=== PATIENT | female | born 1945 | race Caucasian/White ===

== ENCOUNTER 2023-07-27 13:42 | Emergency (ER) | payer OTHER ==
--- OUTSIDE RECORDS SUMMARY | 2023-07-27 13:45 | XMS REPORT | Continuity of Care Document ---
Author Name Unknown Address [address] [facility] [address] [place] [address] [facility] Address [address] [facility] [address] [place] [address] Care Team Providers Care Bench Mover Name Role Phone Janee Gottlieb Primary Care Physician Shwetha HENDRICKS, Sendlucio K.H. Attending Clinician + [phone] SONALI TADEO KSavanaHSavana Attending Clinician SHADE Aceves Attending Clinician Unavailable Doctor Unassigned, [place] Attending Clinician U navailable Payers Payer Name Policy Type Policy Number Effective Date Expirati on Date Source Problems Condition Name Condition Details Condition Category Status Onset Date Resolution Date Last Treatment Date Treating Clinician Comments Source No known active problems No known active problems Disease [facility] Allergies, Adverse Reactions, Alerts Allergy Name Allergy Type Status Severity Reaction(s) Onset Date Inactive Date Treating Clinician Comments Source NO KNOWN ALLERGIE S Drug Class Active [facility] Social History Social Habit Start Date Stop Date Quantity Comments Source History of tobacco use Cigarette Smoker [facility] Gender identity [facility] Sexual orientation U [facility] Exposure to SARS-CoV-2 (event) 2022-03-09 00:00:00 2022-03-19 13:28:00 Not sure [facility] History of Social function 2022-03-19 00:00:00 2022-03-19 00:00:00 [facility] Tobacco use and exposure 2021-01-03 00:00:00 2021-01-03 00:00:00 Former smokeless tobacco user [facility] Sex Ass[birth year] At 1945 00:00:00 1945 00:00:00 [facility] Smoking Status Start Date Stop Date Source Ex-smoker 2021-01-03 00:00:00 2021-01-03 00:00:00 [facility] Medications Ordered Medication Name Filled Medication Name Start Date Stop Date Current Medication? Ordering Clinician Indication Dosage Frequency Signature (SIG) Comments Components Source LISINOPRIL- HYDROCHLORO THIAZIDE 20-12.5 mg per tablet 11-05 00:00: 00 Yes [id number] 1{tbl} TAKE 1 TABLET BY MOUTH IN THE MORNING [facility] lisinopriL- hydrochloro thiazide 20-12.5 mg per tablet 2021-04 13:57: 51 03-19 00:00 :00 No [id number] 1{tbl} Take 1 tablet by mouth daily. [facility] lisinopriL- hydrochloro thiazide 20-12.5 mg per tablet 2021-04 13:57: 51 03-19 00:00 :00 No [id number] 1{tbl} Take 1 tablet by mouth daily. [facility] simvastatin 20 mg tablet 2021-04 13:49: 51 Yes [id number] 20mg Take 20 mg by mouth at bedtime. [facility] simvastatin 20 mg tablet 2021-04 13:49: 51 Yes [id number] 20mg Take 20 mg by mouth at bedtime. [facility] simvastatin 20 mg tablet 2021-04 13:49: 51 Yes [id number] 20mg Take 20 mg by mouth at bedtime. [facility] lisinopriL- hydrochloro thiazide 20-12.5 mg per tablet 2021-04 00:00: 00 Yes [id number] 1{tbl} Take 1 tablet by mouth in the morning. [facility] lisinopriL- hydrochloro thiazide 20-12.5 mg per tablet 2021-04 00:00: 00 Yes [id number] 1{tbl} Take 1 tablet by mouth in the morning. [facility] lisinopriL- hydrochloro thiazide 20-12.5 mg per tablet 2021-04 00:00: 00 11-05 00:00 :00 No [id number] 1{tbl} Take 1 tablet by mouth in the morning. [facility] montelukast 10 mg tablet 08-27 12:01: 43 Yes [id number] 10mg Take 10 mg by mouth daily. [facility] pantoprazol e 40 mg EC tablet 08-27 12:01: 43 Yes [id number] 40mg Take 40 mg by mouth daily. [facility] meclizine 12.5 mg tablet 08-27 12:01: 43 Yes [id number] 12.5mg Take 12.5 mg by mouth 3 (three) times daily as needed for Dizziness. [facility] lisinopriL- hydrochloro thiazide 20-12.5 mg per tablet 08-27 12:01: 43 Yes [id number] 1{tbl} Take 1 tablet by mouth daily. [facility] simvastatin 20 mg tablet 08-27 12:01: 43 Yes [id number] 20mg Take 20 mg by mouth at bedtime. [facility] metFORMIN 500 mg tablet 08-27 12:01: 43 Yes [id number] 500mg Take 500 mg by mouth 2 (two) times daily with meals. [facility] montelukast 10 mg tablet 08-27 12:01: 43 Yes [id number] 10mg Take 10 mg by mouth daily. [facility] pantoprazol e 40 mg EC tablet 08-27 12:01: 43 Yes [id number] 40mg Take 40 mg by mouth daily. [facility] meclizine 12.5 mg tablet 08-27 12:01: 43 Yes [id number] 12.5mg Take 12.5 mg by mouth 3 (three) times daily as needed for Dizziness. [facility] lisinopriL- hydrochloro thiazide 20-12.5 mg per tablet 08-27 12:01: 43 Yes [id number] 1{tbl} Take 1 tablet by mouth daily. [facility] simvastatin 20 mg tablet 08-27 12:01: 43 Yes [id number] 20mg Take 20 mg by mouth at bedtime. [facility] metFORMIN 500 mg tablet 08-27 12:01: 43 Yes [id number] 500mg Take 500 mg by mouth 2 (two) times daily with meals. [facility] montelukast 10 mg tablet 08-27 12:01: 43 Yes [id number] 10mg Take 10 mg by mouth daily. [facility] pantoprazol e 40 mg EC tablet 08-27 12:01: 43 Yes [id number] 40mg Take 40 mg by mouth daily. [facility] meclizine 12.5 mg tablet 08-27 12:01: 43 Yes [id number] 12.5mg Take 12.5 mg by mouth 3 (three) times daily as needed for Dizziness. [facility] metFORMIN 500 mg tablet 08-27 12:01: 43 Yes [id number] 500mg Take 500 mg by mouth 2 (two) times daily with meals. [facility] montelukast 10 mg tablet 08-27 12:01: 43 Yes [id number] 10mg Take 10 mg by mouth daily. [facility] pantoprazol e 40 mg EC tablet 08-27 12:01: 43 Yes [id number] 40mg Take 40 mg by mouth daily. [facility] meclizine 12.5 mg tablet 08-27 12:01: 43 Yes [id number] 12.5mg Take 12.5 mg by mouth 3 (three) times daily as needed for Dizziness. [facility] metFORMIN 500 mg tablet 08-27 12:01: 43 Yes [id number] 500mg Take 500 mg by mouth 2 (two) times daily with meals. [facility] montelukast 10 mg tablet 08-27 12:01: 43 Yes [id number] 10mg Take 10 mg by mouth daily. [facility] pantoprazol e 40 mg EC tablet 08-27 12:01: 43 Yes [id number] 40mg Take 40 mg by mouth daily. [facility] meclizine 12.5 mg tablet 08-27 12:01: 43 Yes [id number] 12.5mg Take 12.5 mg by mouth 3 (three) times daily as needed for Dizziness. [facility] metFORMIN 500 mg tablet 08-27 12:01: 43 Yes [id number] 500mg Take 500 mg by mouth 2 (two) times daily with meals. [facility] OZEMPIC 0.25 mg or 0.5 mg(2 mg/1.5 mL) PnIj 08-19 00:00: 00 Yes .5mg inject 0.5 mg under the skin weekly. [facility] OZEMPIC 0.25 mg or 0.5 mg(2 mg/1.5 mL) PnIj 08-19 00:00: 00 Yes .5mg inject 0.5 mg under the skin weekly. [facility] OZEMPIC 0.25 mg or 0.5 mg(2 mg/1.5 mL) PnIj 08-19 00:00: 00 Yes .5mg inject 0.5 mg under the skin weekly. [facility] OZEMPIC 0.25 mg or 0.5 mg(2 mg/1.5 mL) PnIj 08-19 00:00: 00 Yes .5mg inject 0.5 mg under the skin weekly. [facility] OZEMPIC 0.25 mg or 0.5 mg(2 mg/1.5 mL) PnIj 08-19 00:00: 00 Yes .5mg inject 0.5 mg under the skin weekly. [facility] Vital Signs Vital Name Observation Time Observation Value Comments S ourvika Diastolic blood pressure 2022-03-19 19:38:00 88 mm[Hg] [facility] Heart rate 2022-03-19 19:38:00 82 /min Jocelyne [facility] Systolic blood pressure 2022-03-19 19:38:00 182 mm[Hg] [facility] Body temperature 2022-03-19 19:35:00 36 Celine [facility] Body height 2022-03-19 19:35:00 152.4 cm [facility] Body weight 2022-03-19 19:35:00 77.429 kg [facility] BMI 2022-03-19 19:35:00 33.34 kg/m2 [facility] Oxygen saturation in Arterial blood by Pulse oximetry 2022-03-19 19:35:00 96 /min [facility] Systolic blood pressure 2021-08-27 17:01:00 157 mm[Hg] [facility] Diastolic blood pressure 2021-08-27 17:01:00 83 mm[Hg] [facility] Heart rate 2021-08-27 17:01:00 67 /min [facility] Respiratory rate 2021-08-27 16:59:00 19 /min [facility] Body height 2021-08-27 16:59:00 152.4 cm [facility] Body weight 2021-08-27 16:59:00 78.427 kg [facility] BMI 2021-08-27 16:59:00 33.77 kg/m2 [facility] Oxygen saturation in Arterial blood by Pulse oximetry 2021-08-27 16:59:00 94 /min [facility] Procedures Procedure Date / Time Performed Performing Clinicia n Source ASSIGNMENT OF BENEFITS 2022-03-19 19:30:29 Docto r Unassigned, [place] [facility] Encounters Start Date/Time End Date/Time Encounter Type Admission Type Attending Clinicians Care Facility Care Department Encounter ID Source 2022-11-01 00:00:00 2022-11-01 00:00:00 Refill Sonali Tadeo [facility] [id number] [id number] [facility] 2022-07-18 13:00:00 2022-07-18 13:00:00 Outpatient R SONALI TADEO [facility] [id number] [facility] 2022-04-29 14:20:00 2022-04-29 14:20:00 Outpatient R SHADE NICE [facility] [id number] [facility] 2022-03-19 13:00:00 2022-03-19 14:01:41 Outpatient R SONALI TADEO [facility] [id number] [facility] 2022-03-19 13:00:00 2022-03-19 14:01:41 Office Visit Sonali Tadeo [facility] 1..840.114 [id number] [id number] [facility] 2022-03-19 00:00:00 2022-03-19 00:00:00 Orders Only Doctor Unassigned, [place] [facility] 1..840.114 350.1.13.10 [id number] [id number] [facility] 2022-02-28 10:30:00 2022-02-28 10:30:00 Outpatient R SONALI TADEO [facility] [id number] [facility] 2021-09-04 00:00:00 2021-09-04 00:00:00 Outpatient R SONALI TADEO [facility] [id number] [facility] 2021-08-27 11:30:00 2021-08-27 12:03:36 Outpatient R SONALI TADEO [facility] [id number] [facility] 2021-08-27 11:30:00 2021-08-27 12:03:36 Office Visit Sonali Tadeo [facility] [id number] [id number] [id number] [facility] 2021-02-26 14:31:43 2021-02-26 15:08:55 Office Visit Shwetha Deirdrelucio ErichSavanaBeckySavana [facility] [id number] [id number] [id number] [id number] [facility] 2021-02-26 14:30:00 2021-02-26 15:08:55 Outpatient R SHWETHA DEIRDRELUCIO [facility] [id number] [facility] 2021-02-26 14:30:00 2021-02-26 14:30:00 [id number] 2021-01-25 12:40:50 2021-01-25 23:59:00 Hospital Encounter Shwetha Sonali ChelleSavana [facility] [id number] [id number] [id number] [id number] [facility] 2021-01-25 13:00:00 2021-01-25 13:00:00 Outpatient R SHWETHA DEIRDRELUCIO [facility] [id number] [facility] 2021-01-03 13:09:13 2021-01-03 13:47:02 Office Visit Sonali Tadeo [facility] [id number] 350.1.13.10 [id number] [id number] [facility] 2021-01-03 13:00:00 2021-01-03 13:00:00 Outpatient R SHWETHA DEIRDRELUCIO [facility] [id number] [facility]
[2023-07-27] MEDS ORDERED: ONDANSETRON 4 MG/2 ML VIAL ONE (14:06)
[2023-07-27] MEDS ORDERED: LABETALOL 20 MG/4ML SYRINGE IV ONE (14:15)
[2023-07-27 14:30] LABS: Absolute Basophils 0.1 K/uL (0-0.5); Absolute Eosinophils 0.1 K/uL (0-0.5); Absolute Monocytes 0.8 K/uL (0.1-1.3); Absolute Neutrophil 6.3 K/uL (1.8-8.0); Basophils % 0.5 % (0-1.3); Eosinophils % 0.9 % (0-4.4); Hematocrit 48.8 % (36.0-45.0); Hemoglobin 16.3 g/dL (12.0-15.0); Lymphocytes % 29.1 % (15.3-44.8); MCH 27.3 pg (27.0-35.0); MCHC 33.5 g/dL (32.0-36.0); MCV 81.5 fL (80-100); MPV 8.3 fL (7.6-11.3); Monocytes % 7.6 % (3.3-12.3); Neutrophils % 61.9 % (41.7-73.7); Nucleated Red Blood Cells % 0.1 % (0-0); Platelets 286 thou/uL (152-406); RBC Red Blood Cell Count 5.98 M/uL (3.86-4.86); Red Cell Distribution Width 14.5 % (12.1-15.2)
[2023-07-27 14:31] LABS: PT Prothrombin Time 11.7 SECONDS (9.5-12.5); Protime INR 1.07
[2023-07-27 14:43] LABS: Albumin/Globulin Ratio 0.9 (1.1-1.8); Bilirubin Direct 0.2 mg/dL (0-0.2); Bilirubin Indirect, Calculated 0.3 mg/dL (0.2-0.8); Bilirubin Total 0.5 mg/dL (0.2-1.0); Globulin 4.3 g/dL (2.3-3.5); Magnesium 2.1 mg/dL (1.6-2.4); Protein, Total 8.3 g/dL (6.4-8.2); Troponin High Sensitivity 4.8 pg/mL (<58.9)
--- NOTE | 2023-07-27 15:02 | RAD REPORT ---
EXAM DESCRIPTION: RAD - Chest Single View - 07/27/2023 2:45 pm CLINICAL HISTORY: CHEST PAIN COMPARISON: Chest Pa And Lat (2 Views) dated 12/28/2019 FINDINGS: Lines: None. Lungs: Hazy opacities in the lung bases bilaterally. Pleural: No significant pleural effusions or pneumothorax. Cardiac: Cardiomegaly. Mediastinum: Within normal limits. Bones: No acute fractures. Other: None IMPRESSION: Hazy basilar opacities could reflect atelectasis, underpenetration, or acute airspace di sease.
--- NOTE | 2023-07-27 15:23 | RAD REPORT ---
EXAM DESCRIPTION: CT - Head Brain Wo Cont - 07/27/2023 3:11 pm CLINICAL HISTORY: CONFUSED COMPARISON: No comparisons TECHNIQUE: All CT scans are performed using dose optimization technique as appropriate and may inclu de automated exposure control or mA/KV adjustment according to patient size. FINDINGS: No intracranial hemorrhage, hydrocephalus or extra-axial fluid collection.No areas of brai n edema or evidence of midline shift. Moderate chronic small vessel ischemic changes. Cerebral atroph y. The paranasal sinuses and mastoids are clear. The calvarium is intact. IMPRESSION: No acute intracranial abnormality.
[2023-07-27] MEDS ORDERED: POTASSIUM CL SA 10 MEQ TAB PO ONE (15:53)
[2023-07-27] MEDS ORDERED: Levofloxacin500mg IV 500 MG/100 ML BAG IV ONE (15:53)
--- NOTE | 2023-07-27 16:44 | ER ---
Nurse's Notes [facility] Name: Adina Saxena Age: 77 yrs Sex: Female : 1945 Arrival Date: 07/27/2023 Time: 13:42 Bed 20 Private MD: Diagnosis: Vomiting, dehydration, possible pneumonia Presentation: 07/26 13:54 Chief complaint: Patient states: "toned out for possible fall and increased confusion. mb9 Pts son found pt sitting on stairs and pt denies pain. Pt has history of Dementia". Coronavirus screen: Vaccine status: Patient reports receiving the 2nd dose of the covid vaccine. Ebola Screen: No symptoms or risks identified at this time. Initial Sepsis Screen: Does the patient meet any 2 criteria? No. Patient's initial sepsis screen is negative. Does the patient have a suspected source of infection? No. Patient's initial sepsis screen is negative. Risk Assessment: Do you want to hurt yourself or someone else? Patient reports no desire to harm self or others. Onset of symptoms was July 27, 2023. 13:54 Acuity: MEDHAT 2 mb9 13:54 Method Of Arrival: [facility]9 Triage Assessment: 13:56 General: Appears in no apparent distress. distressed, Behavior is. mb9 13:57 Pain: Denies pain. EENT: No signs and/or symptoms were reported regarding the EENT mb9 system. Neuro: Acevedo Agitation-Sedation Scale (RASS): 0 - Alert and Calm Level of Consciousness is awake, obeys commands, Oriented to person, situation. Cardiovascular: Heart tones S1 S2 present Patient's skin is warm and dry. Respiratory: Airway is patent Respiratory effort is even, unlabored, Respiratory pattern is regular, symmetrical, Breath sounds are clear bilaterally. GI: Pt is actively vomiting undigested food, Bowel sounds present X 4 quads. Abd is soft and non tender X 4 quads. : No signs and/or symptoms were reported regarding the genitourinary system. Derm: Skin is pink, warm \\T\\ dry. Musculoskeletal: Range of motion: intact in all extremities. Historical: - Allergies: 13:53 No Known Allergies; mb9 - Home Meds: 13:53 metformin 750 mg Oral Tablet, Extended Release 24 hr [Active]; lisinopril 20 mg Oral mb9 tablet [Active]; simvastatin 20 mg Oral tablet [Active]; fenofibrate oral [Active]; - PMHx: 13:53 Diabetes mellitus; Dementia; Hypertensive disorder; Hypercholesterolemia; mb9 - PSHx: 13:53 None; mb9 - Immunization history:: Adult Immunizations up to date. - Social history:: Smoking status: Patient denies any tobacco usage or history of. Screenin:19 [facility] ED Fall Risk Assessment (Adult) History of falling in the last 3 months, mb9 including since admission Yes- single mechanical fall (1 pt) Confusion or Disorientation Yes (5 pts) Intoxicated or Sedated No (0 pts) Impaired Gait No (0 pts) Mobility Assist Device Used No (0 pt) Altered Elimination No (0 pt) Score/Fall Risk Level 3 or more points = High Risk Oriented to surroundings, Maintained a safe environment, Educated pt \\T\\ family on fall prevention, incl call for assistance when getting out of bed, Assessed \\T\\ reinforced patient's understanding of fall precautions, Provided non-skid footwear, Hourly rounding (assess needs \\T\\ fall precautionary measures) done. Abuse screen: Denies threats or abuse. Nutritional screening: No deficits noted. Tuberculosis screening: No symptoms or risk factors identified. Assessment: 13:35 Reassessment: son at bedside. mb9 14:31 Reassessment: see triage assessment. mb9 15:28 Reassessment: No changes from previously documented assessment. Patient and/or family mb9 updated on plan of care and expected duration. Pain level reassessed. Patient is alert, oriented x 3, equal unlabored respirations, skin warm/dry/pink. 16:32 Reassessment: No changes from previously documented assessment. Patient and/or family mb9 updated on plan of care and expected duration. Pain level reassessed. Patient is alert, oriented x 3, equal unlabored respirations, skin warm/dry/pink. 17:00 Reassessment: discharge pending completion of IV antibiotics and ride home. mb9 Vital Signs: 13:54 BP 221 / 90; Pulse 83; Resp 18; Temp 98.2; Pulse Ox 97% on R/A; Weight 65.77 kg; Height mb9 5 ft. 0 in. ; Pain 0/10; 14:29 BP 175 / 93; Pulse 79; Resp 20; Pulse Ox 95% on 2 lpm NC; mb9 15:28 BP 161 / 97; Pulse 84; Resp 16; Pulse Ox 100% on R/A; mb9 16:00 BP 146 / 75; Pulse 86; Resp 18; Pulse Ox 100% ; mb9 13:54 Body Mass Index 28.32 (65.77 kg, 152.4 cm) mb9 13:54 Pain Scale: Adult mb9 ED Course: 13:46 Patient arrived in ED. mb9 13:46 Arm band placed on. mb9 13:46 Placed in gown. Bed in low position. Call light in reach. Side rails up X 1. Client mb9 placed on continuous cardiac and pulse oximetry monitoring. NIBP monitoring applied. lunchroom monitor on. 13:47 Fady Crane MD is Attending Physician. sp3 13:53 Haley Santoyo RN is Primary Nurse. mb9 13:56 Triage completed. mb9 14:18 EKG done, by ED staff, reviewed by Fady Crane MD. Inserted saline lock: 18 gauge in mb9 right antecubital area, using aseptic technique. Blood collected. 14:18 Initial lab(s) drawn, by me, sent to lab. mb9 14:32 Provided Education on: press call light if needing anything. mb9 14:32 No provider procedures requiring assistance completed. mb9 14:47 XRAY Chest (1 view) In Process Unspecified. EDMS 15:13 CT Head Brain wo Cont In Process Unspecified. EDMS 15:[address] via stretcher. mb9 17:17 Assisted with bedpan. Cleaned of incontinence. Linen changed. mb9 17:17 IV discontinued, intact, bleeding controlled, No redness/swelling at site. Pressure mb9 dressing applied. Administered Medications: 14:14 Drug: Ondansetron IVP 4 mg IVP once; over 2 minutes Route: IVP; Site: right antecubital;mb9 15:28 Follow up: Response: No adverse reaction mb9 14:18 Drug: Labetalol IV 10 mg IV at calculated rate once Route: IV; Rate: calculated rate; mb9 Site: right antecubital; 15:28 Follow up: IV Status: Completed infusion mb9 16:00 Drug: levofloxacin IVPB 500 mg 100 ml IVPB once over 60 mins Volume: 100 ml; Route: mb9 IVPB; Infused Over: 60 mins; Site: right antecubital; 17:00 Follow up: Response: No adverse reaction; IV Status: Completed infusion mb9 16:00 Drug: Potassium Chloride PO 40 mEq PO once Route: PO; mb9 17:00 Follow up: Response: No adverse reaction mb9 Medication: 13:57 VIS not applicable for this client. mb9 Outcome: 16:44 Discharge ordered by MD. monten[place] 17:29 Discharged to home via wheelchair, with family, mb9 17:29 Condition: stable 17:29 Discharge instructions given to patient, family, Instructed on discharge instructions, follow up and referral plans. Demonstrated understanding of instructions, follow-up care, medications, Prescriptions given X 2, 17:29 Patient left the ED. mb9 Signatures: Dispatcher [employer] EDMS Fady Crane MD MD sp3 Haley Santoyo RN RN mb9 Corrections: (The following items were deleted from the chart) 13:57 13:54 Pulse 83bpm; Resp 18bpm; Pulse Ox 97% RA; Temp 98.2F; 65.77 kg; Height 5 ft. 0 mb9 in.; BMI: 28.3; Pain 0/10, Adult; mb9 13:57 13:56 General: Behavior is mb9 mb9
--- NOTE | 2023-07-27 16:44 | EDPHYS ---
Physician Documentation [facility] Name: Adina Saxena Age: 77 yrs Sex: Female : 1945 Arrival Date: 07/27/2023 Time: 13:42 Bed 20 Private MD: ED Physician Fady Crane HPI: 07/26 14:24 This 77 yrs old Female presents to ER via EMS with complaints of vomiting and altered sp3 mental status. 14:24 77-year-old female with a history of dementia, hypertension, diabetes, hyperlipidemia sp3 presents to the ED with chief complaint altered mental status and vomiting. Patient arrives via EMS with her son who activated 911. Son states that he found patient sitting at the top of the stairs holding her head and having emesis. He states that based on her pill counts she is likely not been taking any of her medications. No way to know whether she is having any other symptoms. She denies having chest pain or shortness of breath. Review of systems, history and physical severely limited secondary to dementia.. Historical: - Allergies: 13:53 No Known Allergies; mb9 - Home Meds: 13:53 metformin 750 mg Oral Tablet, Extended Release 24 hr [Active]; lisinopril 20 mg Oral mb9 tablet [Active]; simvastatin 20 mg Oral tablet [Active]; fenofibrate oral [Active]; - PMHx: 13:53 Diabetes mellitus; Dementia; Hypertensive disorder; Hypercholesterolemia; mb9 - PSHx: 13:53 None; mb9 - Immunization history:: Adult Immunizations up to date. - Social history:: Smoking status: Patient denies any tobacco usage or history of. ROS: 14:26 Unable to obtain ROS due to altered mental status, baseline dementia, sp3 Exam: 14:26 Constitutional: This is a well developed, well nourished patient who is awake, alert, sp3 and in no acute distress. Head/Face: Normocephalic, atraumatic. Eyes: Pupils equal round and reactive to light, extra-ocular motions intact. Lids and lashes normal. Conjunctiva and sclera are non-icteric and not injected. Cornea within normal limits. Periorbital areas with no swelling, redness, or edema. ENT: Nares patent. No nasal discharge, no septal abnormalities noted. External auditory canals are clear. Oropharynx with no redness, swelling, or masses, exudates, or evidence of obstruction, uvula midline. Mucous membranes moist. Neck: Trachea midline, no thyromegaly or masses palpated, and no cervical lymphadenopathy. Supple, full range of motion without nuchal rigidity, or vertebral point tenderness. No Meningismus. Chest/axilla: Normal chest wall appearance and motion. Nontender with no deformity. No lesions are appreciated. Cardiovascular: Regular rate and rhythm with a normal S1 and S2. No gallops, murmurs, or rubs. Normal PMI, no JVD. No pulse deficits. Respiratory: Lungs have equal breath sounds bilaterally, clear to auscultation and percussion. No rales, rhonchi or wheezes noted. No increased work of breathing, no retractions or nasal flaring. Abdomen/GI: Soft, non-tender, with normal bowel sounds. No distension or tympany. No guarding or rebound. No evidence of tenderness throughout. Skin: Warm, dry with normal turgor. Normal color with no rashes, no lesions, and no evidence of cellulitis. MS/ Extremity: Pulses equal, no cyanosis. Neurovascular intact. Full, normal range of motion. 14:26 ECG was reviewed by the Attending Physician. EKG demonstrates normal sinus rhythm at 93 bpm with normal intervals, normal QRS, normal axis, nonspecific ST's ST changes without evidence of acute ischemia. Vital Signs: 13:54 BP 221 / 90; Pulse 83; Resp 18; Temp 98.2; Pulse Ox 97% on R/A; Weight 65.77 kg; Height mb9 5 ft. 0 in. ; Pain 0/10; 14:29 BP 175 / 93; Pulse 79; Resp 20; Pulse Ox 95% on 2 lpm NC; mb9 15:28 BP 161 / 97; Pulse 84; Resp 16; Pulse Ox 100% on R/A; mb9 16:00 BP 146 / 75; Pulse 86; Resp 18; Pulse Ox 100% ; mb9 13:54 Body Mass Index 28.32 (65.77 kg, 152.4 cm) mb9 13:54 Pain Scale: Adult mb9 MDM: 14:01 Patient medically screened. sp3 14:27 Data reviewed: vital signs, nurses notes, EMS record, old medical records, lab test sp3 result(s), EKG, radiologic studies. ED course: 77-year-old female with dementia and PMH above now with vomiting, possible altered mental status among other complaints that we are unable to obtain. Workup will be broad. Differential diagnosis includes dehydration, viral syndrome, AL/ACS spectrum, ICH as her blood pressure is elevated, headache, among others. Workup will include CT scan of the head, EKG demonstrates no significant abnormality, laboratory values which are all pending and we will administer labetalol and Zofran for symptomatic control. Disposition pending workup and patient course.. 15:43 ED course: Patient feeling much better. She is at her baseline mental status as per sp3 family. She is taking p.o. without difficulty and no longer having emesis or nausea. CT scan of the head is negative and labs show no significant abnormality. Chest x-ray shows possible patchy infiltrate however clinically not necessarily there for me. Family reports occasional cough. We will cover with Levaquin with first dose IV here in the ED. Will discharge patient on Levaquin and ondansetron with follow-up to PCP. Average patient and family to return here for any worsening symptoms or any concerns. Potassium will also be replenished p.o. prior to discharge.. 07/26 14:08 Order name: Basic Metabolic Panel; Complete Time: 14:54 07/26 14:08 Order name: CBC with Diff; Complete Time: 14:54 07/26 14:08 Order name: LFT's; Complete Time: 14:54 07/26 14:08 Order name: Magnesium; Complete Time: 14:54 07/26 14:08 Order name: NT PRO-BNP; Complete Time: 14:54 07/26 14:08 Order name: PT-INR; Complete Time: 14:54 07/26 14:08 Order name: Troponin HS; Complete Time: 14:54 07/26 14:08 Order name: XRAY Chest (1 view); Complete Time: 15:24 07/26 14:08 Order name: CT Head Brain wo Cont; Complete Time: 15:24 07/26 14:08 Order name: EKG; Complete Time: 14:08 07/26 14:08 Order name: Cardiac monitoring; Complete Time: 14:18 07/26 14:08 Order name: EKG - Nurse/Tech; Complete Time: 14:18 sp3 07/26 14:08 Order name: IV Saline Lock; Complete Time: 14:18 sp3 07/26 14:08 Order name: Labs collected and sent; Complete Time: 14:18 sp3 07/26 14:08 Order name: O2 Per Protocol; Complete Time: 14:18 sp3 07/26 14:08 Order name: O2 Sat Monitoring; Complete Time: 14:18 sp3 07/26 15:37 Order name: PO challenge; Complete Time: 15:38 sp3 Administered Medications: 14:14 Drug: Ondansetron IVP 4 mg IVP once; over 2 minutes Route: IVP; Site: right antecubital;mb9 15:28 Follow up: Response: No adverse reaction mb9 14:18 Drug: Labetalol IV 10 mg IV at calculated rate once Route: IV; Rate: calculated rate; mb9 Site: right antecubital; 15:28 Follow up: IV Status: Completed infusion mb9 16:00 Drug: levofloxacin IVPB 500 mg 100 ml IVPB once over 60 mins Volume: 100 ml; Route: mb9 IVPB; Infused Over: 60 mins; Site: right antecubital; 17:00 Follow up: Response: No adverse reaction; IV Status: Completed infusion mb9 16:00 Drug: Potassium Chloride PO 40 mEq PO once Route: PO; mb9 17:00 Follow up: Response: No adverse reaction mb9 Disposition Summary: 07/27/23 16:44 Discharge Ordered Notes: Location: Home sp3 Condition: Stable sp3 Diagnosis - Vomiting, dehydration, possible pneumonia sp3 Followup: sp3 - With: Private Physician - When: Upon discharge from the Emergency Department - Reason: Recheck today's complaints, Continuance of care Discharge Instructions: - Discharge Summary Sheet sp3 - Community-Acquired Pneumonia, Adult sp3 - Vomiting, Adult sp3 Forms: - Medication Reconciliation Form sp3 - Thank You Letter sp3 - Antibiotic Education sp3 - Prescription Opioid Use sp3 - Patient Portal Instructions sp3 - Leadership Thank You Letter sp3 Prescriptions: - ondansetron 8 mg Oral Tablet,disintegrating - take 1 tablet ORAL route every 12 hours; 10 tablet; Refills: 0, Product sp3 Selection Permitted - levofloxacin 500 mg Oral tablet - take 1 tablet ORAL route once daily for 7 days; 7 tablet; Refills: 0, Product sp3 Selection Permitted Signatures: Dispatcher [employer] EDMS Fady Crane MD MD sp3 Haley Santoyo RN RN mb9 Corrections: (The following items were deleted from the chart) 14:08 14:08 BASIC METABOLIC PANEL+C.LAB.BRZ ordered. EDMS EDMS 14: 14:08 CBC+H.LAB.BRZ ordered. EDMS EDMS 14: 14:08 HEPATIC FUNCTION+C.LAB.BRZ ordered. EDMS EDMS 14: 14:08 MAGNESIUM+C.LAB.BRZ ordered. EDMS EDMS 14:08 14:08 PROBNP+C.LAB.BRZ ordered. EDMS EDMS 14:08 14:08 PROTIME (+INR)+COAG.LAB.BRZ ordered. EDMS EDMS 14:08 14:08 Troponin High Sensitivity+C.LAB.BRZ ordered. EDMS EDMS
[2023-07-27 22:29] VITALS: BP 146/75; TEMP 98.2; O2SAT 100
--- NOTE | 2023-07-28 13:41 | EKG ---
Test Date: 2023-07-27 Test Time: 13:06:33 Door Worker: ALDO MEASUREMENT RESULTS: Intervals: Rate: 93 WI: 144 QRSD: 74 QT: 350 QTc: 435 Pierre: P: 61 WI: 144 QRS: 72 T: 227 INTERPRETIVE STATEMENTS: Normal sinus rhythm Septal infarct, age undetermined ST & T wave abnormality, consider inferior ischemia Abnormal ECG No previous ECG available for comparison Electronically Signed On 07-28-23 13:36:46 CDT by Arthur Burgos
== END 2023-07-27 17:29 | disposition home or self-care (01) ==
LOC: ER 13:42
DX: E86.0 Dehydration (principal); E11.9 Type 2 diabetes mellitus without complications; I10 Essential (primary) hypertension; F03.90 Unspecified dementia, unspecified severity, without behavioral disturbance, psychotic disturbance, mood disturbance, and anxiety
CPT/HCPCS: 96365; 96367; 93005; 85025; 80048; 36415; 83735; 85610; 80076; 84484; 83880; 70450; 71045; 96375; 99285; J2405